=== PATIENT | female | born 1955 | race Caucasian/White ===

== ENCOUNTER → 2018-06-14 09:55 | Outpatient (CLI) | payer BC, SELFPAY ==
--- NOTE | 2018-06-14 10:00 | BI_ITS ---
MAMMOGRAPHY - BILATERAL SCREENING REASON FOR EXAM: Female, 62 years old. Routine annual screening examination. PERTINENT HISTORY: Non-contributory. TECHNIQUE: Digital bilateral breast itz (3D mammographic acquisition) in the CC and MLO projections. 2-D mediolateral oblique (MLO) and craniocaudad (CC) views of both breasts were obtained. CAD: Full Field Digital Mammography with Computer Added Detection was performed. COMPARISON: Comparison is made with prior study dated September 08, 2016 and March 25, 2015. FINDINGS: Breast Composition: The breasts are heterogeneously dense, which may obscure small masses. There are no dominant masses or suspicious calcifications. No other significant abnormalities are identified. There has been no significant change since the prior study. BI/SCREENING MAMM (CAD), BILAT IMPRESSION: Stable bilateral screening mammogram. Yearly follow-up mammogram recommended. (A) ASSESSMENT CATEGORY: BIRADS Category 1: Negative. A letter regarding these results will be sent to the patient by the facility within 30 days. Approximately 10% of breast cancers are not detected by mammography. A normal mammogram should not delay biopsy of a clinically suspicious abnormality. [id number] Electronically Signed: Ld Tripp MD at 12:54 EST Tel [phone], Service support ,
== END ==
PROVIDERS: Family Provider Family Medicine; PCP Family Medicine; Visit Provider Family Medicine
DX: Z12.31 Encounter for screening mammogram for malignant neoplasm of breast (principal)
CPT/HCPCS: 77063; 77067

== ENCOUNTER → 2018-10-09 11:23 | Outpatient (CLI) | payer BC, SELFPAY ==
[2018-10-12 12:57] LABS: Hep C Antibodies <0.1 s/co ratio (0.0-0.9)
[2018-10-19 13:17] LABS: HPV Reflexed? NOT INDICATED
== END ==
PROVIDERS: Family Provider Family Medicine; PCP Family Medicine; Referring Provider Family Medicine; Visit Provider Family Medicine
DX: Z12.4 Encounter for screening for malignant neoplasm of cervix (principal); Z00.00 Encounter for general adult medical examination without abnormal findings
CPT/HCPCS: 36415; 86803; 88175; G0145

== ENCOUNTER → 2018-12-03 15:32 | Outpatient (CLI) | payer BC, SELFPAY ==
--- NOTE | 2018-12-03 | COLBX_PTH ---
PATIENT: DOM BELL LOC: [facility] U#:[id number] AGE/SX: 69/F ROOM: RE12/03/[address]: Dr. Nilay Landon MD : 1955 BED: DIS: SPEC #: [id number] RECD: 12/03/18 15:13 STATUS: MIRTHA REJacqueline #: [id number] RICKEY: 12/03/18 00:[address]: Edgar Delgado DEPT: SURGICAL PATHOLOGY RECD BY: Beny Ramirez ENTERED: 12/04/18 09:36 SP TYPE: COLON BX OTHR DR: MD Dr. Nilay Aguilar MD [facility] Tissues: Right colon Procedures: Surgery Specimen Level IV Comments: @ Ordering doctor for SUIV edited from to @ by RGOOD at 12/17/18 1243 @ Submitting doctor edited from to @ by RGOOD at 12/17/18 1243 HEADER OPERATION: Colonoscopy with polypectomy PRE-OP DIAGNOSIS: Screening / polyp TISSUE SUBMITTED: Right colon polyp, rule out adenoma MICROSCOPIC DIAGNOSIS Right colon polyp: Hyperplastic polyp with serrated features. FA:sil 12/05/18 MICROSCOPIC DESCRIPTION Slides are reviewed. GROSS DESCRIPTION Received in fixative is one container labeled with the patient's name and designated right colon. The specimen consists of multiple pinkish-whitaker polypoid tissue fragments ranging from 1 to 5 mm in greatest dimension. The specimen is totally submitted in one cassette. / FA:sil 12/04/18 TC:5 CPT: 96444
== END ==
PROVIDERS: Family Provider Family Medicine; PCP Family Medicine; Referring Provider Anesthesiology Pain Medicine; Visit Provider Anesthesiology Pain Medicine
DX: Z13.9 Encounter for screening, unspecified (principal); K63.5 Polyp of colon
CPT/HCPCS: 88305

== ENCOUNTER → 2018-12-10 13:20 | Outpatient (CLI) | payer BC, SELFPAY ==
--- NOTE | 2018-12-10 | IMM_PTH ---
PATIENT: DOM BELL LOC: [facility] U#:[id number] AGE/SX: 69/F ROOM: RE12/10/[address]: Dr. Key Elliott MD : 1955 BED: DIS: SPEC #: [id number] RECD: 12/11/18 15:17 STATUS: MIRTHA REJacqueline #: [id number] RICKEY: 12/10/18 00:[address]: Key Elliott DEPT: IMMUNOHISTOCHEMISTRY RECD BY: Marcela Quintana ENTERED: 12/11/18 15:17 SP TYPE: IMMUNO OTHR DR: Dr. Roxane High MD Tissues: A - Uterine cervix, NOS Procedures: p16 (initial) KI-67 (add) PHYSICIAN & INSTITUTION [place] [place] [phone] SPECIMEN INFORMATION: Tissue Source: A - Cervical biopsy Clinical Info: Postmenopausal, LGSIL Specimen Number: [id number] CPT code: 78761, 63099 METHODOLOGY: Deparaffinized sections of prefer/formalin-fixed tissue or PAP/DQ stained slides are incubated with monoclonal/polyclonal antibodies/oligonucleotide probes. Localization is made via biotin free immunoperoxidase method. Appropriate controls are performed and reacted as expected. Results on target cell population are indicated in the following table: RESULTS: ANTIBODY / CLONE RESULT Block A P16 (E6H4) positive, focal patchy and weak Ki-67 (30-9) positive, low These tests were developed and their performance characteristics determined by [facility]. They may not have been cleared or approved by the U.S. Food and Drug Administration. The FDA has determined that such clearance or approval is not necessary. INTERPRETATION: A. Cervical biopsy: Focal changes consistent with HPV cytopathic effects. SJ:sil 12/14/18 Case has been reviewed in consultation with Dr. Sanchez who concurs with the above diagnosis. IDC:AM
--- NOTE | 2018-12-10 10:00 | CER_PTH ---
PATIENT: DOM BELL [facility] U#:[id number] AGE/SX: 69/F ROOM: RE12/10/[address]: Dr. Key Elliott MD : 1955 BED: DIS: SPEC #: [id number] RECD: 12/10/18 12:59 STATUS: MIRTHA LUCÍA #: [id number] RICKEY: 12/10/18 10:[address]: Key Elliott DEPT: SURGICAL PATHOLOGY RECD BY: Victor M Armstrong ENTERED: 12/10/18 14:01 SP TYPE: CERV OTHR DR: Dr. Roxane High MD Tissues: A - Uterine cervix, NOS B - Uterine cervix, NOS Procedures: Surgery Specimen Level IV HEADER OPERATION: Colposcopy PRE-OP DIAGNOSIS: Postmenopausal, LGSIL TISSUE SUBMITTED: A - Cervical biopsy, B - ECC MICROSCOPIC DIAGNOSIS A. Cervical biopsy: Focal changes consistent with HPV cytopathic effectrs.. Acute and chronic inflammation. Focal atypical squamous metaplasia. See comment. B. ECC: Scant fragments of benign endocervical epithelium, blood and mucous, negative for dysplasia. GABE:sil 12/11/18 COMMENT A. Immunohistochemistry ([id number]) for surrogate HPV marker (p16) supports the above diagnosis. This case has been reviewed in consultation with Dr. Sanchez who concurs with the above diagnosis. MICROSCOPIC DESCRIPTION Slides are reviewed. GROSS DESCRIPTION A - Received in fixative is one container labeled with the patient's name and designated cervical. The specimen consists of multiple irregular fragments of light whitaker soft tissue mixed with mucoid tissue that in aggregate measure 1 x 0.3 x 0.1 cm. The specimen is totally submitted in one cassette. B - Received in fixative is one container labeled with the patient's name and designated ECC. The specimen consists of multiple fragments of hemorrhagic mucoid tissue that in aggregate measure 1 x 0.5 x 0.1 cm. The specimen is totally submitted in one cassette. / GABE:sil 12/10/18 TC:5 CPT: 09948 x2
== END ==
PROVIDERS: Family Provider Family Medicine; PCP Family Medicine; Referring Provider Obstetrics & Gynecology; Visit Provider Obstetrics & Gynecology
DX: Z78.0 Asymptomatic menopausal state (principal)
CPT/HCPCS: 88305; 88341; 88342

== ENCOUNTER → 2019-05-14 10:28 | Outpatient (CLI) | payer BC, SELFPAY ==
[2019-05-17 13:34] LABS: HPV HC, High Risk Negative (Negative)
== END ==
PROVIDERS: Visit Provider Obstetrics & Gynecology
DX: R87.612 Low grade squamous intraepithelial lesion on cytologic smear of cervix (LGSIL) (principal)
CPT/HCPCS: 87624; 88175; G0145

== ENCOUNTER → 2019-12-19 | Outpatient (CLI) | payer BC, SELFPAY ==
[2019-12-27 05:45] LABS: HPV APTIMA, High Risk Positive (Negative); HPV Reflexed? YES, CHARGE PATIENT
== END | disposition home or self-care (01) ==
LOC: LABSPEC 13:05
PROVIDERS: Visit Provider Obstetrics & Gynecology
DX: Z12.4 Encounter for screening for malignant neoplasm of cervix (principal); N39.0 Urinary tract infection, site not specified
CPT/HCPCS: 87086; 87088; 87624; 88175; G0145

== ENCOUNTER → 2020-01-01 14:20 | Outpatient (CLI) | payer BC, SELFPAY ==
--- NOTE | 2020-01-01 14:22 | BI_ITS ---
MAMMOGRAPHY - BILATERAL SCREENING 3-D TOMOSYNTHESIS REASON FOR EXAM: Female, 64 years old. Routine screening PERTINENT HISTORY: No significant family history. TECHNIQUE: 2-D mammograms and 3-D Tomosynthesis of the breast (s) were performed. CAD was performed. COMPARISON: 06/14/2018 FINDINGS: The breast composition is heterogeneously dense that can obscure small breast masses. Scattered benign calcifications are seen. No dense spiculated masses or suspicious microcalcifications are identified. No architectural distortion is identified. There is no skin thickening or retraction. There has been no significant change since the prior study. BI/SCREEN MAMM (CAD) W/TETE BILAT IMPRESSION: No mammographic signs of malignancy. Routine yearly mammograms recommended. ASSESSMENT CATEGORY: BIRADS Category 1: Negative. A letter regarding these results will be sent to the patient by the facility within 30 days. FOLLOW UP RECOMMENDATION: Yearly follow up mammogram recommended. (A) Approximately 10% of breast cancers are not detected by mammography. A normal mammogram should not delay biopsy of a clinically suspicious abnormality. Electronically Signed: Rell Xie MD at 7:37 EDT , Service support ,
== END ==
PROVIDERS: PCP Family Medicine; Referring Provider Obstetrics & Gynecology; Visit Provider Obstetrics & Gynecology
DX: Z12.31 Encounter for screening mammogram for malignant neoplasm of breast (principal)
CPT/HCPCS: 77063; 77067

== ENCOUNTER → 2020-01-20 11:45 | Outpatient (CLI) | payer BC, SELFPAY ==
[2020-01-20 14:48] LABS: Absolute Lymphocyte Count 2.01 X10^3/uL (0.83-4.51); Absolute Neutrophil Count 3.7 X10^3/uL (2.0-7.7); Basophil# 0.06 X10^3/uL; Basophil% 0.9 % (0-1); Eosinophil# 0.15 X10^3/uL; Eosinophils% 2.3 % (0-5); Hematocrit 40.7 % (37-47); Hemoglobin 13.7 g/dL (12.0-15.0); Lymphocyte # 2.01 X10^3/ul (4.0); Lymphocyte % 30.3 % (19-41); Mean Corp Hgb Conc 33.7 g/dL (32-36); Mean Corpuscular Hgb 32.2 pg (27.0-32.0); Mean Corpuscular Volume 95.5 fL (81-99); Mean Platelet Vol. 10.5 fl (6.2-12.0); Monocyte# 0.73 X10^3/uL; NRBC Flagged by Analyzer 0 % (0-5); Neutrophil # 3.67 X10^3/uL (2.7-7.7); Neutrophil % 55.3 % (47-70); POSITIVE MORPHOLOGY YES; Platelet Count 290 K/mm3 (150-450); RBC Distribution Width CV 11.7 % (11.6-14.6); RBC Distribution Width SD 40.3 fl (35.1-43.9); Red Blood Count 4.26 M/mm3 (4.2-5.4); White Blood Count 6.6 K/mm3 (4.4-11.0)
[2020-01-20 14:55] LABS: Differential Indicated SCAN CRITERIA MET
[2020-01-20 15:05] LABS: ALB/GLOB Ratio 1.2 RATIO (0.9-2.4); AST(SGOT) 21 U/L (15-37); Alanine Aminotransfer ALT/SGPT 21 U/L (13-56); Albumin, Serum 3.8 g/dL (3.2-5.0); Alkaline Phosphatase 78 U/L (45-117); Anion Gap 5 (5-15); BUN 15 mg/dL (7-18); BUN/Creat Ratio 20.2 RATIO (10-20); Calcium,Total 8.4 mg/dL (8.5-10.1); Chloride 106 mmol/L (98-107); Creatinine, Serum 0.74 mg/dL (0.55-1.02); EST Glomerular Filtration Rate 84 mL/min (>60); Est Glom Filt Rate - Afr Amer 102 mL/min (>60); Globulin 3.3 g/dL (2.2-4.2); Glucose 88 mg/dL (74-106); Potassium 4.3 mmol/L (3.5-5.1); Protein, Total 7.1 g/dL (6.4-8.2); Sodium Level 140 mmol/L (136-145)
[2020-01-20 15:36] LABS: Differential Comment SCANNED
== END ==
PROVIDERS: PCP Family Medicine; Visit Provider Family Medicine
DX: Z01.818 Encounter for other preprocedural examination (principal)
CPT/HCPCS: 36415; 80053; 85025

== ENCOUNTER 2020-01-31 08:32 | Day surgery (SDC) | payer BC, SELFPAY ==
[2020-01-31] VITALS (8 sets, daily range): BP systolic 106–118; BP diastolic 71–90; PULSE 66–85; RESP 15–16; TEMP 36.5–36.6; O2SAT 98–100; BMI 20.9
--- NOTE | 2020-01-31 | BON_PTH ---
PATIENT: DOM BELL LOC: [facility] U#:[id number] AGE/SX: 64/F ROOM: RE01/31/[address]: Dr. Nilay Cisneros DPM : 1955 BED: DIS: 01/31/2020 SPEC #: [id number] RECD: 01/31/20 12:09 STATUS: MIRTHA REJacqueline #: [id number] RICKEY: 01/31/20 00:[address]: Nilay Cisneros DEPT: SURGICAL PATHOLOGY RECD BY: Beny Ramirez ENTERED: 01/31/20 12:10 SP TYPE: Bone OTHR DR: Dr. Roxane High MD Tissues: A - CYST B - Bone of foot, NOS Procedures: Decalcification bone/plaque Surgery Specimen Level IV HEADER OPERATION: Excision ganglion/mucoid cyst third toe, arthroplasty PRE-OP DIAGNOSIS: Ganglion/mucoid cyst third toe, left foot TISSUE SUBMITTED: A - Cyst of third toe, left foot, B - Bone of third toe, left foot MICROSCOPIC DIAGNOSIS A. Cyst of third toe, left foot, biopsy: Consistent with benign mucous cyst. B. Bone of third toe, left foot, biopsy: Mild reactive change. AM:sil 02/05/20 MICROSCOPIC DESCRIPTION Slides are reviewed. GROSS DESCRIPTION A - Received in fixative is one container labeled with the patient's name and designated cyst of third toe left foot. The specimen consists of a piece of skin with underlying tissue measuring 0.6 x 0.6 x 0.3 cm. The specimen is bisected and reveals a cyst filled with whitaker mucoid material. The entire specimen is submitted in one cassette. B -Received in fixative is one container labeled with the patient's name and designated bone of third toe left foot. The specimen consists of a piece of bone measuring 1 x 0.5 x 0.3 cm. The entire specimen is submitted in one cassette after decalcification. / SJ:sil 01/31/20 TC:5 CPT: 58020 x2, 05785
--- NOTE | 2020-01-31 08:30 | RAD_ITS ---
STUDY: X-RAY - LEFT FOOT CLINICAL: Third toe arthroplasty. TECHNIQUE: 2 intraoperative images of the foot. COMPARISON: None. FINDINGS: There is resection arthroplasty of the third distal interphalangeal joint without evidence of complication. 3 seconds of fluoroscopy time was used. Electronically Signed: Bruce Berman MD at 15:03 EDT Tel , Service support , RAD/Foot 2 Views
[2020-01-31] MEDS: Lactated Ringers 1,000 ML 100 ML IV (09:07)
[2020-01-31] MEDS: Cefazolin 2 GM in 0.9% Normal Saline 100 ML IV (10:31)
[2020-01-31] MEDS: Bupivacaine Mpf 0.5% 30 ML VIAL (10:54)
--- NOTE | 2020-01-31 11:36 | RAD_ITS ---
STUDY: X-RAY - LEFT FOOT CLINICAL: Postop excision of the ganglion/mucoid cyst and third toe arthroplasty. TECHNIQUE: 3 view(s) of the foot. COMPARISON: None. FINDINGS: Normal talus, calcaneus, and tarsal bones. Normal visualized subtalar, talonavicular, calcaneocuboid, tarsal and tarsometatarsal articulations. Normal metatarsi. Normal metatarsophalangeal joint of the great toe. Normal tibial and fibular sesamoid bones. There is joint space narrowing of the interphalangeal joint of the great toe. Normal phalanges of the great toe. Normal second through fifth metatarsophalangeal joints. Status post resection arthroplasty of the third distal interphalangeal joint. The soft tissue structures are unremarkable. RAD/Foot min 3 Views IMPRESSION: Uncomplicated arthroplasty of the third distal interphalangeal joint. 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 Electronically Signed: Bruce Berman MD at 15:30 EDT Tel , Service support ,
--- NOTE | 2020-01-31 11:38 | DCINST_ITS ---
Discharge Diet: Light diet - advance as tolerated Discharge Activity: May not drive while taking narcotic pain medications. Weight Bearing Status: No weight bearing - No weight to toes/ball of left foot, may put weight on left heel for very short periods of time Keep extremity elevated above heart level: Left Leg - Keep left foot elevated as much as possible - at least 50 minutes of every hour Call your doctor if your incision/area has: Continuous Slow Oozing, Sudden Increased Bleeding, Foul Smelling Discharge Call your doctor if you observe: Fever of 101 or Higher, Shortness of breath, Chest pain, Calf discomfort, Uncontrolled pain Cleanse incision/area with: Do not get Incision Wet, Keep Dressing Clean & Dry Allergies/Adverse Reactions: Allergies No Known Allergies Allergy (Verified 01/31/20 08:56) Medications to take at Discharge Mv-Mn/Folic AC/Calcium/Vit K1 [Women's 50 Plus Multivit Tab] 1 ea PO DAILY 01/21/20 Hydrocodone Bitart/Apap 5-325 [[place] 5MG-325MG] 1 - 2 tablet PO Q6H PRN PRN 4 Days #15 tablet 01/31/20 The following prescriptions were given: Hydrocodone Bitart/Apap 5-325 [[place] 5MG-325MG] 1 - 2 tablet PO Q6H PRN PRN 4 Days #15 tablet PRN Reason: Pain Transmission Status: Sent to [facility]/pharmacy #[id number] Primary Care Physician: Roxane High MD [Primary Care Provider] - Test Results: Test results from this visit will be discussed in further detail at your follow- up appointment, if applicable. Please Follow Up With: Nilay Cisneros DPM When: 1 week, sooner if needed
--- NOTE | 2020-01-31 11:40 | OP.PCM_ITS ---
Report of Operation Date of Procedure: 01/31/20 Pre-Operative Diagnosis: Ganglion/mucoid cyst left 3rd toe Post-Operative Diagnosis: Same Surgery/Procedure Performed:: Excision of ganglion/mucoid cyst 3rd toe with arthroplasty of toe, left correctional supervising cook: yes - Dr. Ulisses Moulton Type of Anesthesia:: Local MAC Specimen's removed: 1. Left 3rd toe cyst sent to pathology. 2. Bone from left 3rd toe sent to pathology Description of Procedure: Indications: This is a 64 year old female with a chronic cyst on the dorsal left 3rd toe overlying distal interphalangeal joint. This is painful, and symptomatic despite several attempts at drainage and excision/cautery in office. She has elected to under go surgical intervention - excision of ganglion/mucoid cyst with arthroplasty of the left 3rd toe. This was discussed with her in great detail, reviewed the procedures, as well as the rationale of the procedures with her in great detail. We discussed and reviewed the possible benefits vs risks/potential complications. The estimated healing/recovery time and protocol were reviewed with her in detail. Reviewed the goals and the expectations. She expressed understanding and agreement and elected to proceed forward with surgical intervention as noted above. The consent forms were reviewed and they were freely signed. All questions were answered. No guarantees were given or implied. She was cleared from medical standpoint to proceed with surgery. Operative Procedure: The patient was brought back into the operating room and was placed on the operating table in the supine position. Patient was carefully secured to the operating room table with a safety belt around her waist. A time out was performed and the patient was properly identified and the surgical plan was confirmed. The patient received IV antibiotic prophylaxis - 2g of Ancef. The patient received MAC anesthesia per the anesthesiologist. After the skin was cleansed with 70% Isopropyl alcohol mL of 0.5% Bupivacaine plain was given as left 3rd ray block on the left foot. A well padded pneumatic tourniquet was applied around the patient's left ankle. The left foot was scrubbed, prepped, and draped in the usual aseptic fashion. Attention was directed to the left foot, there was noted to be a round well defined raised fluid filled soft tissue mass of 0.6cm x 0.6cm consistent with a digital ganglion/mucoid cyst on the dorsal left 3rd toe overlying the distal interphalangeal joint. The foot was elevated for 3 minutes and the ankle pneumatic tourniquet was inflated to 250mmHg. Excision of cyst: A skin incision was made around the cyst. Careful dissection was completed around the cyst and it was noted the stalk was extending down to the distal interphalangeal joint. The cyst, including the stalk was excised and sent to pathology as a specimen. The site was flushed out with copious amounts of normal saline solution. The skin was reapproximated using 4-0 Nylon. Arthroplasty of toe: A dorsal linear longitudinal incision was made over the distal interphalangeal joint (DIPJ) of the toe in transverse fashion. The extensor digitorum longus tendon was transected and reflected off of the head of the middle phalanx of the 3rd toe. This was done with a 15 blade. The dorsal DIPJ joint capsule was incised with a 15 blade. There were noted to be some degenerative changes to the cartilage of the joint. The head of the middle phalanx was resected using a powered sagittal saw. The resected bone was sent to pathology as a specimen. The site was flushed out with copious amounts of normal saline solution. The extensor digitorum longus tender was repaired using 4-0 Vicryl. The skin was reapproximated using 4-0 Nylon. The pneumatic tourniquet was deflated at 25 minutes, there was immediate return of warmth and perfusion to the foot and to all toes on the foot with normal temperature gradient and CFT < 2 seconds to all toes once the tourniquet was deflated. All hemostasis was achieved prior to closure. A dressing was applied which consisted of Betadine soaked adaptic, 4x4 gauze, Kerlix, and an alvin bandage. Of note, all vital structures including all vital neurovascular and tendon str uctures were properly identified, protected, and retracted as necessary throughout the above operative procedures. The patient tolerated the above operative procedures well at the anesthesia well with no complication. The patient was transported from the operating room to the recovery room with vital signs stable and in good condition. Post operative orders were placed. Post operative instructions were reviewed. No weightbearing left forefoot and toes, keep foot elevated for at least 50 minutes of every hour, keep dressing and splint clean, dry and intact. Prescription for Mobeetie for pain control was prescribed. Post operative xrays were obtained in the recovery room (DP, Oblique, and lateral foot) - there was arthroplasty of the 3rd toe DIPJ; no acute problems or complications seen. Toe in rectus position w/ no evidence of complication. Patient to follow up with me in office within 1 week, sooner if needed. Grafts/Implants Used: None - Complications None
== END 2020-01-31 12:39 | disposition home or self-care (01) ==
LOC: SDC 08:32 → AC 08:33
PROVIDERS: Anesthesiology; PCP Family Medicine; Referring Provider Podiatrist; Visit Provider Podiatrist
PROC: (CPT 28092; principal; 2020-01-31 09:15)
DX: M67.472 Ganglion, left ankle and foot (principal); Z11.59 Encounter for screening for other viral diseases; Z78.0 Asymptomatic menopausal state
CPT/HCPCS: 28092; 28285; 73620; 73630; 76000; 87635; 88304; 88305; 88311; 94799; J7120; J2405; U0003

== ENCOUNTER → 2020-02-06 | Outpatient (CLI) | payer BC, SELFPAY ==
[2020-01-31 08:57] VITALS: BMI 20.9
--- NOTE | 2020-02-06 | IMM_PTH ---
PATIENT: DOM BELL LOC: [facility] U#:[id number] AGE/SX: 64/F ROOM: RE02/06/[address]: Dr. William Browne MD : 1955 BED: DIS: 02/06/2020 SPEC #: [id number] RECD: 02/10/20 13:12 STATUS: MIRTHA REQ #: [id number] RICKEY: 02/06/20 00:[address]: William Browne DEPT: IMMUNOHISTOCHEMISTRY RECD BY: Marcela Quintana ENTERED: 02/10/20 13:13 SP TYPE: IMMUNO OTHR DR: Dr. Roxane High MD Tissues: A - Uterine cervix, NOS B - Uterine cervix, NOS Procedures: p16 (initial) KI-67 (add) PHYSICIAN & INSTITUTION [place] [id number] SPECIMEN INFORMATION: Tissue Source: A - Fourth quadrant, B - ECC Clinical Info: R87.612 Specimen Number: [id number] A & B CPT code: 31571 x2, 76207 x2 METHODOLOGY: Deparaffinized sections of prefer/formalin-fixed tissue or PAP/DQ stained slides are incubated with monoclonal/polyclonal antibodies/oligonucleotide probes. Localization is made via biotin free immunoperoxidase method. Appropriate controls are performed and reacted as expected. Results on target cell population are indicated in the following table: RESULTS: ANTIBODY / CLONE RESULT Block A P16 (E6H4) positive, focal, patchy Ki-67 (30-9) positive, low Block B P16 (E6H4) negative Ki-67 (30-9) negative These tests were developed and their performance characteristics determined by [facility]. They may not have been cleared or approved by the U.S. Food and Drug Administration. The FDA has determined that such clearance or approval is not necessary. The above immunohistochemical/dualISH markers are ordered and reviewed by the Pathologist. INTERPRETATION: A. Cervix, fourth quadrant biopsy: Focal HPV change present. B. Endocervix, curettings: Negative for HPV change. AM:sil 02/11/20
--- NOTE | 2020-02-06 11:15 | CER_PTH ---
PATIENT: DOM BELL [id number] AGE/SX: 64/F ROOM: RE02/06/[address]: Dr. William Browne MD : 1955 BED: DIS: 02/06/2020 SPEC #: [id number] RECD: 02/07/20 08:59 STATUS: MIRTHA REJacqueline #: [id number] RICKEY: 02/06/20 11:[address]: William Browne DEPT: SURGICAL PATHOLOGY RECD BY: Victor M Armstrong ENTERED: 02/07/20 08:59 SP TYPE: CERV OTHR DR: Dr. Roxane High MD Tissues: A - Uterine cervix, NOS B - Uterine cervix, NOS Procedures: Surgery Specimen Level IV HEADER OPERATION: Colposcopy PRE-OP DIAGNOSIS: R87.612 TISSUE SUBMITTED: A - Fourth quadrant, B - ECC MICROSCOPIC DIAGNOSIS A. Cervix, fourth quadrant biopsy: Focal HPV change noted. Squamous metaplasia and chronic inflammation. See comment. B. Endocervix, curettings: Strips of benign superficial endocervix. Strips of benign superficial squamous mucosa. See comment. AM:sil 02/10/20 COMMENT A & B. Results from immunohistochemistry ([id number]) for surrogate HPV marker (p16) will be reported separately. Reference is made to the patient's previous cervical biopsy from 2019 ([id number]) in which focal changes consistent with HPV cytopathic effect were identified. Case has been reviewed in consultation with Dr. Baldwin who concurs with the above diagnosis. IDC:SJ MICROSCOPIC DESCRIPTION Slides are reviewed. GROSS DESCRIPTION A - Received in fixative is one container labeled with the patient's name and designated fourth quad. The specimen consists of multiple irregular fragments of light whitaker soft tissue that in aggregate measure 0.7 x 0.6 x 0.1 cm. The specimen is totally submitted in one cassette. B - Received in fixative is one container labeled with the patient's name and designated ECC. The specimen consists of multiple irregular fragments of dark whitaker soft tissue that in aggregate measure 1 x 0.8 x 0.1 cm. The specimen is totally submitted in one cassette. / AM:sil 02/07/20 TC:5 CPT: 21534 x2
== END | disposition home or self-care (01) ==
LOC: LABSPEC 15:18
PROVIDERS: PCP Family Medicine; Visit Provider Obstetrics & Gynecology
DX: R87.612 Low grade squamous intraepithelial lesion on cytologic smear of cervix (LGSIL) (principal)
CPT/HCPCS: 88305; 88341; 88342

== ENCOUNTER → 2020-12-25 08:06 | Outpatient (CLI) | payer OTHER, SELFPAY ==
[2020-01-31 08:57] VITALS: BMI 20.9
--- NOTE | 2020-12-25 08:11 | US_ITS ---
STUDY: ABDOMINAL ULTRASOUND - RIGHT UPPER QUADRANT REASON FOR VISIT: Female, 65 years old diarrhea, abdominal pain TECHNIQUE: Ultrasound evaluation of the right upper quadrant was performed with real-time and static moran-scale imaging. TECHNICAL QUALITY: Adequate. COMPARISON: None. FINDINGS: Liver: The liver measures 13.3 cm. There is normal echogenicity of the liver. The bile ducts are within normal limits. There is hepatic color flow. The direction of portal flow is hepatopetal. 3 cysts are seen in the liver. The largest measures 3.6 cm x 3.8 cm x 2.5 cm. Gallbladder: Normal distended gallbladder. The gallbladder wall measures 1.3 mm. There is a negative sonographic Mendez''s sign. There is no pericholecystic fluid. There are no gallstones. Common Bile Duct (C.B.D.): The common bile duct measures 4.2 mm. Pancreas: Normal size of the head, body and tail of the pancreas. There is increased echogenicity of the pancreas. There is no demonstrated pancreatic mass or cyst. Right Kidney: Normal size of the right kidney. The right kidney measures 9.7 cm x 4.9 cm x 4.1 cm. Normal renal cortex. The right cortex measures 1.0 cm. There is no demonstrated renal mass or cyst. There is no right hydronephrosis. US/Abdomen Limited IMPRESSION: 3 hepatic cysts. Electronically Signed: Ld Tripp MD at 9:18 EDT , Service support ,
== END ==
PROVIDERS: PCP Family Medicine; Referring Provider Family Medicine; Visit Provider Family Medicine
DX: R10.9 Unspecified abdominal pain (principal)
CPT/HCPCS: 76705

== ENCOUNTER → 2020-12-29 13:54 | Outpatient (CLI) | payer OTHER, SELFPAY ==
[2020-01-31 08:57] VITALS: BMI 20.9
[2020-12-29 15:30] LABS: Absolute Lymphocyte Count 1.34 X10^3/uL (0.83-4.51); Absolute Neutrophil Count 3.3 X10^3/uL (2.0-7.7); Basophil# 0.05 X10^3/uL; Hematocrit 40.3 % (37-47); Hemoglobin 13.3 g/dL (12.0-15.0); Lymphocyte # 1.34 X10^3/ul (0.83-4.51); Lymphocyte % 25.6 % (19-41); Mean Corpuscular Hgb 31.5 pg (27.0-32.0); Mean Corpuscular Volume 95.5 fL (81-99); Mean Platelet Vol. 10.5 fl (6.2-12.0); Monocyte# 0.54 X10^3/uL; Monocyte% 10.3 % (0-10); NRBC Flagged by Analyzer 0 % (0-5); Neutrophil # 3.29 X10^3/uL (2.7-7.7); Neutrophil % 62.7 % (47-70); Platelet Count 269 K/mm3 (150-450); RBC Distribution Width CV 11.9 % (11.6-14.6); RBC Distribution Width SD 41.1 fl (35.1-43.9); Red Blood Count 4.22 M/mm3 (4.2-5.4); White Blood Count 5.2 K/mm3 (4.4-11.0)
[2020-12-29 17:12] LABS: AST(SGOT) 17 U/L (15-37); Alanine Aminotransfer ALT/SGPT 21 U/L (13-56); Albumin, Serum 3.6 g/dL (3.2-5.0); Alkaline Phosphatase 84 U/L (45-117); Amylase 56 U/L (25-115); Bilirubin, Direct 0.12 mg/dL (0.00-0.30); Globulin 3.2 g/dL (2.2-4.2); Lipase 148 U/L (73-393); Protein, Total 6.8 g/dL (6.4-8.2)
== END ==
PROVIDERS: PCP Family Medicine; Visit Provider Family Medicine
DX: R19.7 Diarrhea, unspecified (principal)
CPT/HCPCS: 36415; 80076; 82150; 83690; 85025

== ENCOUNTER → 2021-06-01 14:34 | Outpatient (CLI) | payer SELFPAY ==
--- NOTE | 2021-06-01 14:40 | BI_ITS ---
MAMMOGRAPHY - BILATERAL SCREENING REASON FOR EXAM: Female, 65 years old. Routine annual screening examination. PERTINENT HISTORY: Non-contributory. TECHNIQUE: Digital bilateral breast tete (3D mammographic acquisition) in the CC and MLO projections. 2-D mediolateral oblique (MLO) and craniocaudad (CC) views of both breasts were obtained. CAD: Full Field Digital Mammography with Computer Added Detection was performed. COMPARISON: Comparison is made with prior study dated 01/01/2020 and 06/14/2018. FINDINGS: Breast Composition: The breasts are heterogeneously dense, which may obscure small masses. There are no dominant masses or suspicious calcifications. No other significant abnormalities are identified. There has been no significant change since the prior study. BI/SCRN MAMM (CAD)W/TETE BILAT IMPRESSION: Stable bilateral screening mammogram. Yearly follow-up mammogram recommended. (A) ASSESSMENT CATEGORY: BIRADS Category 1: Negative. A letter regarding these results will be sent to the patient by the facility within 30 days. Approximately 10% of breast cancers are not detected by mammography. A normal mammogram should not delay biopsy of a clinically suspicious abnormality. [id number] Electronically Signed: Ld Tripp MD at 15:36 EST , Service support ,
== END ==
PROVIDERS: PCP Family Medicine; Referring Provider Family Medicine; Visit Provider Family Medicine
DX: Z12.31 Encounter for screening mammogram for malignant neoplasm of breast (principal)
CPT/HCPCS: 77063; 77067

== ENCOUNTER 2021-07-23 15:53 | Outpatient (CLI) | payer SELFPAY ==
[2021-07-29 22:07] LABS: HPV Genotype 16, Aptima Negative (Negative)
[2021-07-29 22:53] LABS: HPV APTIMA, High Risk Positive (Negative); HPV Genotype 18,45 Aptima Negative (Negative)
== END 2021-07-23 23:59 | disposition home or self-care (01) ==
LOC: LABSPEC 15:55
PROVIDERS: PCP Family Medicine; Visit Provider Student in an Organized Health Care Education/Training Program
DX: Z12.4 Encounter for screening for malignant neoplasm of cervix (principal)
CPT/HCPCS: 87624; 88175; G0145

== ENCOUNTER → 2022-01-24 | Outpatient (CLI) | payer SELFPAY ==
[2022-01-27 22:06] LABS: HPV Genotype 16, Aptima Negative (Negative)
[2022-01-28 11:42] LABS: HPV APTIMA, High Risk Positive (Negative); HPV Genotype 18,45 Aptima Negative (Negative)
== END | disposition home or self-care (01) ==
LOC: LABSPEC 09:45
PROVIDERS: PCP Family Medicine; Visit Provider Student in an Organized Health Care Education/Training Program
DX: Z12.4 Encounter for screening for malignant neoplasm of cervix (principal); R87.618 Other abnormal cytological findings on specimens from cervix uteri
CPT/HCPCS: 87624; 88175; G0145

== ENCOUNTER → 2023-01-25 | Outpatient (CLI) | payer BC, SELFPAY ==
[2023-01-25 11:11] LABS: Anion Gap 4 (5-15); BUN 20 mg/dL (7-18); BUN/Creat Ratio 23.8 RATIO (10-20); Calcium,Total 9.2 mg/dL (8.5-10.1); Chloride 106 mmol/L (98-107); Cholesterol 234 mg/dL (200); Creatinine, Serum 0.84 mg/dL (0.55-1.02); EST Glomerular Filtration Rate 72 mL/min (>60); Est Glom Filt Rate - Afr Amer 88 mL/min (>60); Glucose 91 mg/dL (74-106); High Density Lipoprotein 71 mg/dL; Potassium 4.3 mmol/L (3.5-5.1); Sodium Level 139 mmol/L (136-145); Triglycerides 84 mg/dL; Very Low Density Lipoprotein 17 mg/dL (5-40)
[2023-01-31 10:09] LABS: HPV APTIMA, High Risk Positive (Negative)
== END | disposition home or self-care (01) ==
PROVIDERS: PCP Family Medicine; Visit Provider Family Medicine
DX: Z01.419 Encounter for gynecological examination (general) (routine) without abnormal findings (principal); E11.9 Type 2 diabetes mellitus without complications
CPT/HCPCS: 36415; 80048; 80061; 87624; 88175; G0145

== ENCOUNTER → 2023-02-20 | Outpatient (CLI) | payer MEDICARE, SELFPAY ==
--- NOTE | 2023-02-20 | IMM_PTH ---
PATIENT: DOM BELL LOC: [facility] U#:[id number] AGE/SX: 67/F ROOM: RE02/20/[address]: Dr. Cortney Higgins DO : 1955 BED: DIS: 02/20/2023 SPEC #: [id number] RECD: 02/22/23 14:33 STATUS: MIRTHA REQ #: [id number] RICKEY: 02/20/23 00:[address]: Cortney Higgins DEPT: IMMUNOHISTOCHEMISTRY RECD BY: Marcela Quintana ENTERED: 02/22/23 14:34 SP TYPE: IMMUNO OTHR DR: Dr. Roxane High MD Tissues: A - Uterine cervix, NOS B - Endocervical Procedures: p16 (initial) KI-67 (add) PHYSICIAN & INSTITUTION [place] [phone] SPECIMEN INFORMATION: Tissue Source: A - Cervical biopsy, B - Endocervical curettings Clinical Info: N87.0, R87.810 Specimen Number: [id number] A & B CPT code: 06227 x2, 19679 x2 METHODOLOGY: Deparaffinized sections of prefer/formalin-fixed tissue or PAP/DQ stained slides are incubated with monoclonal/polyclonal antibodies/oligonucleotide probes. Localization is made via biotin free immunoperoxidase method. Appropriate controls are performed and reacted as expected. Results on target cell population are indicated in the following table: RESULTS: ANTIBODY / CLONE RESULT Block A P16 (E6H4) positive, patchy to block-like Ki-67 (30-9) positive, low Block B P16 (E6H4) positive, focal block-like Ki-67 (30-9) positive, low These tests were developed and their performance characteristics determined by [facility]. They may not have been cleared or approved by the U.S. Food and Drug Administration. The FDA has determined that such clearance or approval is not necessary. The above immunohistochemical/dualISH markers are ordered and reviewed by the Pathologist. INTERPRETATION: A. Cervix, biopsy: Mild and focal moderate squamous dysplasia, KRAIG I-II (HSIL). B. Endocervix, curettings: Mild and focal moderate squamous dysplasia, KRAIG I-II (HSIL). AM:sil 02/23/2023
--- NOTE | 2023-02-20 | CER_PTH ---
PATIENT: DOM BELL LOC: [facility] U#:[id number] AGE/SX: 67/F ROOM: RE02/20/[address]: Dr. Cortney Higgins DO : 1955 BED: DIS: 02/20/2023 SPEC #: [id number] RECD: 02/20/23 14:23 STATUS: MIRTHA RE #: [id number] RICKEY: 02/20/23 00:[address]: Cortney Higgins DEPT: SURGICAL PATHOLOGY RECD BY: Sun Chilel ENTERED: 02/21/23 08:51 SP TYPE: CERV OTHR DR: Dr. Roxane High MD Tissues: A - Uterine cervix, NOS B - Endocervical Procedures: Surgery Specimen Level IV HEADER OPERATION: Colposcopy and endocervical curettage PRE-OP DIAGNOSIS: N87.0, R87.810 TISSUE SUBMITTED: A - Cervical biopsy, B - ECC MICROSCOPIC DIAGNOSIS A. Cervix, biopsy: Mild to moderate squamous dysplasia, CINI- II(HSIL). See comment. B. Endocervix, curettings: Fagments of squamous mucosa with mild to moderate squamous dysplasia, KRAIG I-II (HSIL). Scant strips of benign superficial endocervix. See comment. AM:sil 02/22/2023 COMMENT A & B. Results from immunohistochemistry ([id number]) for surrogate HPV marker (p16) will be reported separately. Case has been reviewed in consultation with Dr. Baldwin who concurs with the above diagnosis. IDC:SJ MICROSCOPIC DESCRIPTION Slides are reviewed. GROSS DESCRIPTION A - Received in fixative is one container labeled with the patient's name and designated colposcopy. The specimen consists of multiple fragments of whitaker hemorrhagic soft tissue mixed with mucoid tissue that in aggregate measure 0.6 x 0.6 x 0.1 cm. The specimen is totally submitted in one cassette. B - Received is one container labeled with the patient's name and not further designated. The specimen consists of multiple fragments of hemorrhagic soft tissue that in aggregate measure 1.0 x 0.5 x 0.1 cm. The specimen is totally submitted in one cassette. / GABE:sil 02/21/2023 TC:0 CPT: 65369 x2
== END | disposition home or self-care (01) ==
PROVIDERS: PCP Family Medicine; Visit Provider Student in an Organized Health Care Education/Training Program
DX: N87.0 Mild cervical dysplasia (principal); R87.810 Cervical high risk human papillomavirus (HPV) DNA test positive
CPT/HCPCS: 88305; 88341; 88342

== ENCOUNTER 2023-02-28 11:48 | Day surgery (SDC) | payer MEDICARE, SELFPAY ==
--- NOTE | 2023-02-28 | IMM_PTH ---
PATIENT: DOM [place]LL [place] [facility] [id number] AGE/SX: 67/F ROOM: RE02/28/[address]: Dr. Cortney Higgins DO : 1955 BED: DIS: 02/28/2023 SPEC #: [id number] RECD: 03/02/23 13:54 STATUS: MIRTHA REQ #: [id number] RICKEY: 02/28/23 00:[address]: Cortney Higgins DEPT: IMMUNOHISTOCHEMISTRY RECD BY: Marcela Quintana ENTERED: 03/02/23 13:55 SP TYPE: IMMUNO OTHR DR: Dr. Roxane High MD Tissues: A - UTERINE CERVIX LEEP B - UTERINE CERVIX LEEP Procedures: p16 (initial) KI-67 (add) PHYSICIAN & INSTITUTION [place] [id number] SPECIMEN INFORMATION: Tissue Source: A - Inferior cervix, B - Anterior cervix Clinical Info: Cervical dysplasia Specimen Number: [id number] A & B CPT code: 78309 x2, 05433 x2 METHODOLOGY: Deparaffinized sections of prefer/formalin-fixed tissue or PAP/DQ stained slides are incubated with monoclonal/polyclonal antibodies/oligonucleotide probes. Localization is made via biotin free immunoperoxidase method. Appropriate controls are performed and reacted as expected. Results on target cell population are indicated in the following table: RESULTS: ANTIBODY / CLONE RESULT Block A P16 (E6H4) positive, patchy to focal block-like Ki-67 (30-9) positive, low Block B P16 (E6H4) positive, focal, patchy Ki-67 (30-9) positive, low These tests were developed and their performance characteristics determined by [facility]. They may not have been cleared or approved by the U.S. Food and Drug Administration. The FDA has determined that such clearance or approval is not necessary. The above immunohistochemical/dualISH markers are ordered and reviewed by the Pathologist. INTERPRETATION: A. Inferior cervix, LEEP conization: Mild to moderate squamous dysplasia, KRAIG I-II (HSIL). B. Anterior cervix, LEEP conization: Mild squamous dysplasia, KRAIG I (LSIL). AM:sil 03/03/2023
[2023-02-28 12:25] VITALS: BP 115/76; PULSE 74; RESP 16; TEMP 36.9; O2SAT 100; BMI 22.9
[2023-02-28] MEDS: Lactated Ringers 1,000 ML 125 ML IV (12:28)
--- NOTE | 2023-02-28 12:39 | HP.PCM.OB_ITS ---
History and Physical Date of Admission: 02/28/23 HPI: 67-year-old female with mild to moderate cervical dysplasia plan for loop electrical excisional procedure. Denies headache or vision changes, chest pain or shortness of breath, nausea or vomiting, diarrhea constipation, fevers or chills. FREELANCE INTERPRETER/TRANSLATOR history: Medical history: 1. Hypoglycemia Surgical history: Denies Medications: Denies Family history: Noncontributory Allergies: No known drug allergies Social history: Denies tobacco, alcohol, drug use Physical exam: Blood pressure 115/76, heart rate 74, respiratory rate 16, temp 98.5 ?F, oxygen saturation 100% on room air General: No acute distress, comfortable in bed HEENT: Normal cephalic/atraumatic Cardiorespiratory: No increased effort Abdomen: Soft, nontender Extremities: No edema Assessment/plan: 67-year-old female with mild to moderate cervical dysplasia plan for loop electrical excisional procedure. All risk, benefits, alternatives were discussed with the patient. Risk include but are not limited to: Risk of bleeding the point of transfusion, infection, injury to surrounding tissue VTE, ICU admission. Patient aware and consented. All questions answered.,
--- NOTE | 2023-02-28 13:30 | CONE_PTH ---
PATIENT: DOM BELL LOC: [facility] [place] U#:[id number] AGE/SX: 67/F ROOM: RE02/28/[address]: Dr. Cortney Higgins DO : 1955 BED: DIS: 02/28/2023 SPEC #: [id number] RECD: 02/28/23 16:21 STATUS: MIRTHA REJacqueline #: [id number] RICKEY: 02/28/23 13:[address]: Cortney Higgins DEPT: SURGICAL PATHOLOGY RECD BY: Bhupinder Fuller ENTERED: 03/01/23 08:23 SP TYPE: Leep Cone DEBRA DR: Dr. Roxane High MD Tissues: A - UTERINE CERVIX LEEP B - UTERINE CERVIX LEEP C - Endocervical Procedures: Surgery Specimen Level IV Surgery Specimen Level V HEADER OPERATION: LEEP cone PRE-OP DIAGNOSIS: Cervical dysplasia TISSUE SUBMITTED: A - Inferior cervix, B - Anterior cervix, C - Endocervix MICROSCOPIC DIAGNOSIS A. Inferior cervix, LEEP conization: Mild to focal moderate squamous dysplasia, KRAIG I-II (HSIL). Changes consistent with HPV cytopathic effect. See comment. B. Anterior cervix, LEEP conization: Mild squamous dysplasia, KRAIG I (LSIL). Changes consistent with HPV cytopathic effect. See comment. C. Endocervix, LEEP conization: Mild chronic inflammation. No evidence of dysplasia. AM:sil 03/03/2023 COMMENT A & B. Results from immunohistochemistry ([id number]) for surrogate HPV marker (p16) will be reported separately. Moderate dysplasia involves endocervical glands in the sections from the inferior LEEP conization specimen. Clinical correlation is suggested. A-C. Margins are free of dysplasia. Reference is made to the patient's previous cervical biopsy ([id number]) in which focal HPV change was identified. Case has been reviewed in consultation with Dr. Baldwin who concurs with the above diagnosis. IDC:GABE MICROSCOPIC DESCRIPTION Slides are reviewed. GROSS DESCRIPTION A - Received in fixative is one container labeled with the patient's name and designated inferior cervix. The specimen consists of a single irregular fragment of whitaker tissue measuring 1.2 x 0.5 x 0.2 cm. The specimen is inked, bisected and totally submitted in one cassette. B - Received in fixative is one container labeled with the patient's name and designated anterior cervix. The specimen consists of a single irregular fragment of whitaker tissue measuring 1.5 x 0.7 x 0.3 cm. The specimen is inked, serially sectioned and totally submitted in one cassette. C - Received in fixative is one container labeled with the patient's name and designated endocervix. The specimen consists of two irregular fragments of whitaker tissue ranging in size from 0.7 to 1.0 cm. The fragments are inked, sectioned and totally submitted in one cassette. / AM:sil 03/01/2023 TC:3 CPT: 37070, 64381 x2
--- NOTE | 2023-02-28 14:04 | OP.PCM_ITS ---
Report of Operation Date of Procedure: 02/28/23 Pre-Operative Diagnosis: Mild and moderate cervical dysplasia Post-Operative Diagnosis: Mild and moderate cervical dysplasia Surgery/Procedure Performed:: Loop electrical excisional procedure Description of Surgical Findings:: Normal-appearing external genitalia. Cervix flush with vagina. Normal Lugol staining of entire cervix and upper vagina. Surgeon: Cortney Higgins tire technician: None Type of Anesthesia: MAC Specimen's removed: Inferior cervix, anterior cervix, endocervix Estimated Blood Loss (mL): 5 cc Fluids Replaced: 600cc Description of Procedure: Indication/risk/benefits:67-year-old female with mild to moderate cervical dysplasia plan for loop electrical excisional procedure. All risk, benefits, alternatives were discussed with the patient. Risk include but are not limited to: Risk of bleeding the point of transfusion, infection, injury to surrounding tissue VTE, ICU admission. Patient aware and consented. All questions answered., Procedure: Patient taken to the operating room and MAC anesthesia induced. Patient placed in the dorsal lithotomy position prepped and draped in the usual sterile fashion. Coated speculum placed in vagina and cervix visualized noting spotting above. Lugol's placed in along the cervix and upper vagina. Electrical loop used to remove inferior cervix, anterior cervix, endocervix. Cervical biopsy bed hemostatic with electrocautery and Monsel's. Speculum removed. At the end of the procedure all needle, lap, sponge counts were correct. UOP: 25cc urine Complications None Admit VTE Documentation VTE Mechan Device Prophylaxis: SCD's
--- NOTE | 2023-02-28 14:05 | DCINST_ITS ---
Discharge Instructions Diet Discharge Diet: No restrictions Activity Discharge Activity: Return to Normal Activity and May Shower May resume sexual activity in: 2 weeks Weight Bearing Status: Weight bearing as tolerated Lifting Restrictions: None Dressing / Incision Call your doctor if you observe: Fever of 101 or Higher, Change in Color, Inability to urinate, Using more than 1 pad per hour, Shortness of breath, Dizziness, Swelling in the ankles, Chest pain and Calf discomfort Follow Up Care Please Follow Up With: Cortney Higgins DO When: 1-2 week postoperative visit Test Results: Test results from this visit will be discussed in further detail at your follow- up appointment, if applicable. Discharge Plan Admission Primary Reason for Your Visit: ADRIANNE Attending Provider: Cortney Higgins Primary Care Provider: Roxane High Discharge Orders/Prescriptions Prescriptions: No Action [id number]-[id number]-dngge-calcium carb-K1 1 EACH tablet 1 ea PO DAILY cholecalciferol (vitamin D3) [Vitamin D3] 25 mcg (1,000 unit) capsule 25 mcg PO DAILY Referrals / Follow Up: Roxane High MD [Primary Care Provider] - Disposition Disposition (needs filled in before D/C Order can be placed): Home, Self Care
[2023-02-28] MEDS: Iodine/Potassium Iodide 14ML Bottle 1 DRP TOPICAL (14:24)
[2023-02-28] MEDS: FERRIC SUBSULFATE 8 GM SOLN (14:32)
[2023-02-28 14:45] VITALS: BP 104/78; BP 115/76; PULSE 78; RESP 15; TEMP 36.1; O2SAT 94
[2023-02-28 14:50] VITALS: BP 110/78; BP 115/76; PULSE 78; RESP 16; O2SAT 94
[2023-02-28 14:55] VITALS: BP 108/78; BP 115/76; PULSE 71; RESP 15; O2SAT 93
[2023-02-28 15:00] VITALS: BP 115/76; BP 130/83; PULSE 71; RESP 16; TEMP 36.1; O2SAT 96
[2023-02-28 15:26] VITALS: BP 115/76
== END 2023-02-28 15:33 | disposition home or self-care (01) ==
LOC: SDC 11:53 → AC 11:55
PROVIDERS: PCP Family Medicine; Referring Provider Student in an Organized Health Care Education/Training Program; Visit Provider Student in an Organized Health Care Education/Training Program
PROC: 0UBC7ZZ Excision of Cervix, Via Natural or Artificial Opening (ICD-10-PCS; CPT 57522; principal; 2023-02-28 13:15)
DX: N87.0 Mild cervical dysplasia (principal); Z78.0 Asymptomatic menopausal state
CPT/HCPCS: 57522; 00940; 88305; 88307; 88341; 88342; J7120; J2405

== ENCOUNTER → 2023-03-22 | Outpatient (CLI) | payer MEDICARE, SELFPAY ==
--- NOTE | 2023-03-22 10:31 | BI_ITS ---
MAMMOGRAPHY - BILATERAL SCREENING REASON FOR EXAM: Female, 67 years old. Routine annual screening examination. PERTINENT HISTORY: Non-contributory. TECHNIQUE: Digital bilateral breast tete (3D mammographic acquisition) in the CC and MLO projections. 2-D mediolateral oblique (MLO) and craniocaudad (CC) views of both breasts were obtained. CAD: Full Field Digital Mammography with Computer Added Detection was performed. COMPARISON: Comparison is made with prior study dated June 01, 2021 and January 01, 2020. FINDINGS: Breast Composition: The breasts are heterogeneously dense, which may obscure small masses. There are no dominant masses or suspicious calcifications. No other significant abnormalities are identified. There has been no significant change since the prior study. BI/SCRN MAMM (CAD)W/TETE BILAT IMPRESSION: Stable bilateral screening mammogram. Yearly follow-up mammogram recommended. (A) ASSESSMENT CATEGORY: BIRADS Category 1: Negative. A letter regarding these results will be sent to the patient by the facility within 30 days. Approximately 10% of breast cancers are not detected by mammography. A normal mammogram should not delay biopsy of a clinically suspicious abnormality. [id number] Electronically Signed: Ld Tripp MD at 10:56 EDT ,
--- NOTE | 2023-03-22 10:34 | BD_ITS ---
STUDY: DUAL ENERGY X-RAY ABSORPTIOMETRY / DXA REASON FOR EXAM: Female, 67 years old. V76.12ScreeningBONE DENSITY REASON FOR EXAM TECHNIQUE: Bone Mineral Density (BMD) measurements of lumbar spine and bilateral hips were obtained. COMPARISON: None. FINDINGS: Lumbar Spine (L1-L4): g/cm2 (0.875) / T-score (-0.9) / Z-score (0.7) Findings are suggestive of normal bone density with a low fracture risk. Left Femur Total: g/cm2 (0.769) / T-score (-1.4) / Z-score (-0.2) Left Femoral Neck: g/cm2 (0.618) / T-score (-2.1) / Z-score (-0.5) Right Femur Total: g/cm2 (0.806) / T-score (-1.1) / Z-score (0.1) Right Femoral Neck: g/cm2 (0.640) / T-score (-1.9) / Z-score (-0.3) BD/Dexa Bone Density Study IMPRESSION: The patient is considered osteopenic as outlined below according to World [place] Organization (WHO) criteria with a moderate fracture risk. Reference Information: The T-score is the number of standard deviations above or below the standard which is normal for young adults at their peak bone mineral density. The World Health Organization (WHO) interprets the T-scores as follows: Above -1 Normal bone density Between -1 and -2.5 Osteopenia Equal to / or below -2.5 Osteoporosis As a practical clinical guideline, osteopenia may be graded as follows: Mild -1 through -1.5 Moderate -1.6 through -2.0 Severe -2.1 through -2.4 The Z-score is the number of standard deviations above or below age-matched controls. A Z-score of less than -1.5 would be considered abnormal. References: 1. NIH Osteoporosis and Related Bone Diseases www osteo.org 2. International Society for Clinical Densitometry www iscd.org 3. National Osteoporosis Foundation www nof.org Electronically Signed: Ld Tripp MD at 12:35 EDT ,
== END | disposition home or self-care (01) ==
PROVIDERS: PCP Family Medicine; Visit Provider Family Medicine
DX: Z12.31 Encounter for screening mammogram for malignant neoplasm of breast (principal); N95.9 Unspecified menopausal and perimenopausal disorder
CPT/HCPCS: 77063; 77067; 77080

== ENCOUNTER 2024-02-21 08:00 | Outpatient (RCR) | payer MEDICARE, SELFPAY ==
--- NOTE | 2024-01-19 07:56 | HP.PTEVAL_ITS ---
Patient's Visit Information Visit Information Visit Information: DOM BELL is a 68 year old F referred to Physical Therapy by Dr. Roxane High MD with a diagnosis of L patellar tendonitis. Date of Evaluation: 01/19/24 Physical Therapist: Keny Cordero, LAMBERTT, OCS, CSCS Visit Plan Frequency: 2x /Week Duration: 4-6 Weeks Plan: 2x/week for 2-4 weeks to start IE HEP itb and quad stretch 30 5x daily, educated on activitiy modification iwth stoop and squat and pivot and leg position. Also on benefits of bracing and exit strategy to Home strength Please instruct and progress to HEP a core and hip focussed strength program mat to WB and try to get I over 4 visits, can include quad and HS also and give pics. Subjective Subjective: L knee popped while sitting in a meeting and crossing L leg over right and that was over a month ago. It hurt for 3 days then stopped. 2 weeks later started hurting again with a dull ache and feels it under the knee cap and worse with straightening knee. took some time to see doctor and get in here. Doctor said slightly swollen. Nothing torn. Pain this week has been low , was a 3/10 weeks ago but feels unstable. Has not felt like this before in knee. H/o patellar dislocation at knee cap. Sleep is not anymore interrupted. No pain meds. 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 [facility] ADLs are getting done, only bothers her if it feels liek it going to come apart trasniently 1-2x/day Trains seeing eye dogs and has to walk them a melvin mile and another mile at night. Can do it but wants to make sure she does not reinjure it. Hobbies otherwise are sedentary and can do them. Crossing L leg can cause some discomfort. Exercises: walking, barre, wieghts and balance mornings at [employer](mat strength with light weights.) Pain L knee: Pain Intensity (Out of 10): 0 Pain Intensity Range: 0 and 3 Objective Objective: Walks normal without antalgia into PT. Trasnfers I, steps reciprocal without rail, some discomfort coming down. AROM B knees 0-140 but hesitant to fully extend L knee adn painful with quad set. Very cautious with quad contraction. reflexes 2/3 patella and achilles Sensation LE WNL to gross light touch. Tightness obvious in ITB L and minimally in quad B. strength at core is 3+/5 flexion and ext hip rotations are 3 and abd and ext 3/5 B with contralateral hip rotation with hip flexor testing. Flexion 4- B. quad 4- L and 4 R, HS 4 B, L quad has some pain. ankles 4+/5 without pain - ant drawer - post sag - varus and vlagus + patelaar apprehension + patellar grind On L - bounce home Balance/Special Test Scores Lower Extremity Functional Score: 51 Goals Goal 1:: I appropriate HEP for core adn hip and knee strength adn stretching to manage condition Goal Time Frame: 4-6 Weeks Goal 2:: Pt feel pain and stability 75% improved and manageable. Goal Time Frame: 4-6 Weeks Goal 3:: walk dogs without hesitation. Goal Time Frame: 4-6 Weeks Goal 4:: LEFS 60 Goal Time Frame: 4-6 Weeks Rehabilitation Potential Physical Therapy Diagnosis: Pain and fear with L knee limting quality of life and predisposing to injury Rehabilitation Potential: Good Anticipated Interventions Patient/Client Instruction: Educate patient on: Plan of Care For the Purpose of:: To decrease pain, To improve muscle performance and motor function, To increase tolerance to activity/condition/position and To improve ability of physical actions for home/community/work/leisure Therapeutic Exercise to Include: Strength training and Flexibilty training For the Purpose of:: To decrease pain, To increase ROM, To improve muscle performance and motor function and To increase tolerance to activity/condition/position Text: Thank you for the opportunity to evaluate your patient. For Medicare and Medicare HMO plans, please review the plan of care and approve it. It will need to be FAXED BACK to us at [phone] for Medicare purposes. For Medicare only, by signing this I certify the plan of care. Please let me know if there are questions or concerns regarding this plan of care. Physician Signature: Date:
--- NOTE | 2024-02-21 08:55 | HP.PTDCSUM ---
Discharge Summary D/C summary: It has been my pleasure to treat DOM BELL referred by Dr. Roxane High MD, with the diagnosis of L patellar tendonitis for a total of 8 visit(s). Discharge Date: 02/21/24 Please see the following information for a summary of their discharge status. Subjective Subjective: Getting great workout but still feels something wrong under knee cap. Sleep is OK. Pain is not a huge issue. She is having a hard time trusting it and it feels awkward and weird. Activities: avoiding stairs as much as she can as it gets sore. Has to think about everything so things are slower. Feels like it hyperextends multiple times per day. Pain L knee: Pain Intensity (Out of 10): 0 Overall Improvement % Improvement: 0 Objective Objective/Function: full AROM, some instability pain at end range of extension, slight + bounce home. Walks normal today and steps hesitantly but reciprocally and without rail today. marches well and butt kicks without pain. Goals Goal 1:: I appropriate HEP for core adn hip and knee strength adn stretching to manage condition Goal Progress: Goal Met Goal 2:: Pt feel pain and stability 75% improved and manageable. Goal Progress: Not Progressing Goal 3:: walk dogs without hesitation. Goal Progress: carefully Goal 4:: LEFS 60 Goal Progress: not met. Plan Plan: d/c, pt back to doctor for next medical step due frustration and instabliity in knee D/C Information d/c sentence: If there are questions or concerns regarding this patient's physical therapy, please feel free to call me at [phone]. Thank you for the referral of this patient. Sincerely, Keny Cordero, DPT, OCS, CSCS Balance/Gait/Functional tests Balance/Special Test Scores Lower Extremity Functional Score: 58 Improvement % Improvement: 0
== END 2024-02-21 19:00 | disposition home or self-care (01) ==
LOC: PT 08:00
PROVIDERS: PCP Family Medicine; Referring Provider Family Medicine; Visit Provider Family Medicine
DX: M76.52 Patellar tendinitis, left knee (principal)
CPT/HCPCS: 97110; 97161

== ENCOUNTER → 2024-03-05 | Outpatient (CLI) | payer MEDICARE, SELFPAY ==
--- NOTE | 2024-03-05 11:31 | RAD_ITS ---
STUDY: X-RAY - LEFT KNEE REASON FOR EXAM: Female, 68 years old. Pain, instability TECHNIQUE: 4 view(s) of the knee. COMPARISON: None. FINDINGS: Normal visualized distal femur. Normal visualized proximal tibia and fibula. Normal proximal tibiofibular articulation. There is mild degenerative arthrosis of the medial femorotibial compartment. Normal lateral femorotibial compartment. There is mild degenerative arthrosis of the patellofemoral articulation. The soft tissue structures are unremarkable. RAD/Knee 4 or More Views IMPRESSION: Mild arthrosis without fracture or suspicious osseous lesion Electronically Signed: Rell Xie MD at 10:09 EDT ,
== END | disposition home or self-care (01) ==
LOC: MTRAD 11:31
PROVIDERS: PCP Family Medicine; Referring Provider Family Medicine; Visit Provider Family Medicine
DX: M23.92 Unspecified internal derangement of left knee (principal)
CPT/HCPCS: 73564

== ENCOUNTER → 2024-09-06 | Outpatient (CLI) | payer MEDICARE, SELFPAY ==
--- NOTE | 2024-09-06 12:02 | BI_ITS ---
EXAM: SCRN MAMM (CAD)W/TETE BILAT 09/06/2024 CLINICAL HISTORY: F, Age 69 y/o , SCREENING TECHNIQUE: Bilateral screening digital breast tomosynthesis with 2D and 3D images. Computer aided detection. COMPARISON: Prior exam(s) dated 03/22/2023, 06/01/2021. FINDINGS: TISSUE DENSITY: The breast tissue is composed of scattered area of fibroglandular density. Bilateral Breast Mammographic Findings: No significant masses, calcifications or other abnormalities are identified. BI/SCRN MAMM (CAD)W/TETE BILAT IMPRESSION: Right Breast: BIRADS 1 NEGATIVE. Left Breast: BIRADS 1 NEGATIVE. OVERALL FINAL ASSESSMENT: BIRADS 1 NEGATIVE. RECOMMENDATION: Routine annual follow-up in 1 Year A letter with findings and recommendations will be mailed to the patient. Reading Location: [facility]
== END | disposition home or self-care (01) ==
LOC: OPBI 12:02
PROVIDERS: PCP Family Medicine; Referring Provider Family Medicine; Visit Provider Family Medicine
DX: Z12.31 Encounter for screening mammogram for malignant neoplasm of breast (principal)
CPT/HCPCS: 77063; 77067